=== PATIENT | male | born 1990 | race Caucasian/White ===

== ENCOUNTER 2020-11-09 02:28 | Emergency (ER) | payer OTHER ==
[~2020-11-09] VITALS: Ht 175.3 cm; Wt 127.3 kg
[2020-11-09 02:43] VITALS: BP 129/44
== END 2020-11-09 03:22 | disposition home or self-care (01) ==
LOC: EMS 02:30
DX: T59.91XA Toxic effect of unspecified gases, fumes and vapors, accidental (unintentional), initial encounter (principal); Y92.89 Other specified places as the place of occurrence of the external cause
CPT/HCPCS: 99283